=== PATIENT | male | born 1975 | race Caucasian/White ===

== ENCOUNTER → 2022-10-04 | Outpatient (CLI) | payer OTHER ==
[2022-10-04 09:37] LABS: BASOPHILS ABSOLUTE AUTO 0.05 K/mm3 (0.00-0.23); BASOPHILS PERCENT AUTO 0 % (0-2); EOSINOPHILS ABSOLUTE AUTO 0.05 K/mm3 (0.00-0.68); EOSINOPHILS PERCENT AUTO 0 % (0-6); Hematocrit 43.1 % (37.0-53.0); Hemoglobin 15.9 g/dL (13.5-17.5); IMMATURE GRAN ABSOLUTE AUTO 0.09 K/mm3 (0.00-0.10); IMMATURE GRAN PERCENT AUTO 1 % (0-1); LYMPHOCYTES ABSOLUTE AUTO 1.63 K/mm3 (0.84-5.20); LYMPHOCYTES PERCENT AUTO 9 % (21-46); MONOCYTES ABSOLUTE AUTO 1.21 K/mm3 (0.16-1.47); MONOCYTES PERCENT AUTO 6 % (4-13); Mean Corpuscular HGB 32.4 pg (26.0-34.0); Mean Corpuscular HGB Conc 36.9 g/dL (31.5-36.5); Mean Corpuscular Volume 88 fL (80-100); Mean Platelet Volume 9.2 fL (9.1-12.4); NEUTROPHILS ABSOLUTE AUTO 15.99 K/mm3 (1.96-9.15); NEUTROPHILS PERCENT AUTO 84 % (41-73); Platelet Count 289 K/mm3 (150-400); RDW Coefficient Variation 12.5 % (11.7-14.2); RDW Standard Deviation 39.9 fL (35.1-46.3); Red Blood Cell Count 4.91 M/mm3 (4.30-5.90); White Blood Cell Count 19.02 K/mm3 (4.00-11.30)
[2022-10-04 09:50] LABS: Albumin/Globulin Ratio 1.1 (0.8-1.8); Bilirubin, Total 0.8 mg/dL (0.1-1.0); Bun/Creatinine Ratio 11.9 (12.0-20.0); Calcium, Blood 9.1 mg/dL (8.5-10.1); Creatinine, Blood 1.01 mg/dL (0.60-1.20); Globulin, Blood 3.7 g/dL (2.2-4.0); Total Protein, Blood 7.7 g/dL (6.4-8.2)
== END | disposition home or self-care (01) ==
LOC: LAB SHORT 09:33 → LAB 09:33
PROVIDERS: Chiropractor
DX: R10.30 Lower abdominal pain, unspecified (principal)
CPT/HCPCS: 80053; 85025

== ENCOUNTER → 2022-12-11 | Outpatient (CLI) | payer SELFPAY ==
[~2022-12-11] MED LIST: BUSPIRONE HCL7.5 M1 PO; LEVO750 PO
[2022-12-11 08:58] LABS: BASOPHILS ABSOLUTE AUTO 0.03 K/mm3 (0.00-0.23); BASOPHILS PERCENT AUTO 0 % (0-2); EOSINOPHILS ABSOLUTE AUTO 0.11 K/mm3 (0.00-0.68); EOSINOPHILS PERCENT AUTO 1 % (0-6); Hematocrit 42.9 % (37.0-53.0); Hemoglobin 15.6 g/dL (13.5-17.5); IMMATURE GRAN ABSOLUTE AUTO 0.07 K/mm3 (0.00-0.10); IMMATURE GRAN PERCENT AUTO 1 % (0-1); LYMPHOCYTES ABSOLUTE AUTO 1.58 K/mm3 (0.84-5.20); LYMPHOCYTES PERCENT AUTO 10 % (21-46); MONOCYTES ABSOLUTE AUTO 0.87 K/mm3 (0.16-1.47); MONOCYTES PERCENT AUTO 6 % (4-13); Mean Corpuscular HGB 32.5 pg (26.0-34.0); Mean Corpuscular HGB Conc 36.4 g/dL (31.5-36.5); Mean Corpuscular Volume 89 fL (80-100); Mean Platelet Volume 9.2 fL (9.1-12.4); NEUTROPHILS ABSOLUTE AUTO 12.82 K/mm3 (1.96-9.15); NEUTROPHILS PERCENT AUTO 83 % (41-73); Platelet Count 266 K/mm3 (150-400); RDW Coefficient Variation 12.7 % (11.7-14.2); RDW Standard Deviation 41.6 fL (35.1-46.3); White Blood Cell Count 15.48 K/mm3 (4.00-11.30)
[2022-12-11 09:07] LABS: Albumin, Blood 3.7 g/dL (3.4-5.0); Albumin/Globulin Ratio 0.9 (0.8-1.8); Bilirubin, Total 1.1 mg/dL (0.1-1.0); Bun/Creatinine Ratio 14.9 (12.0-20.0); Calcium, Blood 9.4 mg/dL (8.5-10.1); Creatinine, Blood 0.94 mg/dL (0.60-1.20); Globulin, Blood 4.2 g/dL (2.2-4.0); Total Protein, Blood 7.9 g/dL (6.4-8.2)
== END | disposition home or self-care (01) ==
LOC: LAB SHORT 08:53 → LAB 08:53
PROVIDERS: Family Medicine
DX: R10.9 Unspecified abdominal pain (principal)
CPT/HCPCS: 80053; 83690; 85025

== ENCOUNTER 2022-12-16 14:35 | Inpatient (IN) | payer OTHER ==
[~2022-12-16] VITALS: Ht 162.6 cm; Wt 79.4 kg
[2022-12-16 17:12] LABS: Albumin, Blood 3.7 g/dL (3.4-5.0); Albumin/Globulin Ratio 0.9 (0.8-1.8); Bilirubin, Total 0.6 mg/dL (0.1-1.0); Bun/Creatinine Ratio 15.2 (12.0-20.0); Calcium, Blood 9.1 mg/dL (8.5-10.1); Creatinine, Blood 0.99 mg/dL (0.60-1.20); Globulin, Blood 3.9 g/dL (2.2-4.0); Total Protein, Blood 7.6 g/dL (6.4-8.2)
[2022-12-16 17:20] VITALS: BP 131/75
[2022-12-16] MEDS ORDERED: BUSPIRONE HCL7.5 M1 PO (17:55)
--- NOTE | 2022-12-16 18:22 | NUR ---
ER ADMIT Patient admitted for abscess, plan is to be NPO & waiting for surgery consult, consulted resendiz din by ER MD. Patient reports mild pain in RLQ. LR infusing. Denies N/V. Vitals stable.
--- NOTE | 2022-12-16 18:26 | NUR ---
Reviewed safety and provided education to patient and regarding ignition sources and risk of injury while oxygen is in use. Patient & deny smoking or having any ignition sources in belongs, verbalized understanding.
[2022-12-16 20:07] VITALS: BP 133/78
[2022-12-17 02:33] VITALS: BP 113/75
[2022-12-17 05:56] LABS: BASOPHILS ABSOLUTE AUTO 0.04 K/mm3 (0.00-0.23); BASOPHILS PERCENT AUTO 0 % (0-2); EOSINOPHILS ABSOLUTE AUTO 0.26 K/mm3 (0.00-0.68); EOSINOPHILS PERCENT AUTO 3 % (0-6); Hematocrit 41.4 % (37.0-53.0); Hemoglobin 14.5 g/dL (13.5-17.5); IMMATURE GRAN ABSOLUTE AUTO 0.07 K/mm3 (0.00-0.10); IMMATURE GRAN PERCENT AUTO 1 % (0-1); LYMPHOCYTES ABSOLUTE AUTO 1.97 K/mm3 (0.84-5.20); LYMPHOCYTES PERCENT AUTO 19 % (21-46); MONOCYTES PERCENT AUTO 6 % (4-13); Mean Corpuscular HGB 30.9 pg (26.0-34.0); Mean Corpuscular Volume 88 fL (80-100); Mean Platelet Volume 9.1 fL (9.1-12.4); NEUTROPHILS ABSOLUTE AUTO 7.22 K/mm3 (1.96-9.15); NEUTROPHILS PERCENT AUTO 71 % (41-73); Platelet Count 374 K/mm3 (150-400); RDW Coefficient Variation 12.1 % (11.7-14.2); RDW Standard Deviation 38.9 fL (35.1-46.3); Red Blood Cell Count 4.69 M/mm3 (4.30-5.90); White Blood Cell Count 10.16 K/mm3 (4.00-11.30)
--- NOTE | 2022-12-17 06:20 | NUR ---
SHIFT SUMMARY PT IS A&O4, INDEPENDENT IN ROOM, RA, VSS, NPO SINCE ADMISSION, MEDICATED FOR PAIN X1 OVERNIGHT, FIRE IGNITION SAFETY EDUCATION PROVIDED, CONTINUE POC
[2022-12-17 06:37] LABS: Bun/Creatinine Ratio 16.7 (12.0-20.0); Calcium, Blood 8.6 mg/dL (8.5-10.1); Creatinine, Blood 0.84 mg/dL (0.60-1.20); Potassium, Blood 4.1 mmol/L (3.5-5.5)
[2022-12-17 15:09] VITALS: BP 112/75
--- NOTE | 2022-12-17 16:55 | NUR ---
DAYSHIFT SUMMARY Patient alert & oriented x4. NPO this AM pending surgical consult, plan is to continue IV ABX & clear liquid diet. Patient will remain hospitalized overnight & repeat CT. No plans for surigcal intervention at this time. IV Zoysn infused BID this shift. Tolertating PO intake, denies N/V. Patient denies smoking any nicotine products. During hourly rounding, education provided on the risks of injury while using an ignition source around O2. Patient & verbalize understanding and deny having any ignition sources in possession. VSS, Will continue plan of care.
[2022-12-17 19:19] VITALS: BP 119/79
[2022-12-18 04:55] VITALS: BP 104/69
[2022-12-18 05:19] LABS: BASOPHILS ABSOLUTE AUTO 0.05 K/mm3 (0.00-0.23); BASOPHILS PERCENT AUTO 1 % (0-2); EOSINOPHILS ABSOLUTE AUTO 0.35 K/mm3 (0.00-0.68); EOSINOPHILS PERCENT AUTO 4 % (0-6); Hematocrit 41.8 % (37.0-53.0); Hemoglobin 14.7 g/dL (13.5-17.5); IMMATURE GRAN ABSOLUTE AUTO 0.05 K/mm3 (0.00-0.10); IMMATURE GRAN PERCENT AUTO 1 % (0-1); LYMPHOCYTES ABSOLUTE AUTO 2.37 K/mm3 (0.84-5.20); LYMPHOCYTES PERCENT AUTO 27 % (21-46); MONOCYTES ABSOLUTE AUTO 0.58 K/mm3 (0.16-1.47); MONOCYTES PERCENT AUTO 7 % (4-13); Mean Corpuscular HGB 31.1 pg (26.0-34.0); Mean Corpuscular HGB Conc 35.2 g/dL (31.5-36.5); Mean Corpuscular Volume 89 fL (80-100); NEUTROPHILS ABSOLUTE AUTO 5.36 K/mm3 (1.96-9.15); NEUTROPHILS PERCENT AUTO 61 % (41-73); Platelet Count 428 K/mm3 (150-400); RDW Coefficient Variation 11.9 % (11.7-14.2); RDW Standard Deviation 38.8 fL (35.1-46.3); Red Blood Cell Count 4.72 M/mm3 (4.30-5.90); White Blood Cell Count 8.76 K/mm3 (4.00-11.30)
--- NOTE | 2022-12-18 05:54 | NUR ---
SHIFT SUMMARY PT'S PAIN WELL MANAGED WITH TYLENOL, AND DID NOT REQUIRE ANY DOSES OF FENTANYL THIS SHIFT. Q1H FIRE SAFETY CHECKS COMPLETED WITH NO SOURCES OF IGNITION IDENTIFIED.
[2022-12-18 05:59] LABS: Albumin, Blood 3.4 g/dL (3.4-5.0); Anion Gap 8 mmol/L (6-16); Blood Urea Nitrogen 11 mg/dL (8-24); Bun/Creatinine Ratio 11.1 (12.0-20.0); CO2, Blood 25 mmol/L (21-32); Calcium, Blood 8.9 mg/dL (8.5-10.1); Chloride, Blood 107 mmol/L (98-108); Creatinine, Blood 0.99 mg/dL (0.60-1.20); Glomerular Filtration Rate 95 (60-); Glucose, Blood 87 mg/dL (70-99); Phosphorus, Blood 4.1 mg/dL (2.5-4.9); Potassium, Blood 3.9 mmol/L (3.5-5.5); Sodium, Blood 140 mmol/L (136-145)
[2022-12-18 07:40] VITALS: BP 115/73
[2022-12-18 15:25] VITALS: BP 123/88
--- NOTE | 2022-12-18 18:15 | NUR ---
SHIFT SUMMMARY: Pt remains A&O x3 this shift. VSS, resp even nonlabored on RA. Up with steady gait. BM this afternoon. Tolerating full liquid diet. IV antibx given as ordered. No further needs id or verbalized at this time. Will continue to monitor this shift.
[2022-12-18 19:47] VITALS: BP 117/67
[2022-12-19 03:20] VITALS: BP 104/61
--- NOTE | 2022-12-19 05:58 | NUR ---
PT UP TO RESTROOM DURING BEDSIDE REPORTING - EDUCATED PT OF IGNITION RISK - PT DENIED ANY ITEMS THAT HAVE POTENTIAL RISK- PT DENIED PAIN- IV ABX INFUSED INTERMITTENLY T/O NIGHT- SLEEP IN CHAIR AT BEDSIDE- BED LOW POSITION, CALL LIGHT WITHIN REACH
[2022-12-19 07:32] VITALS: BP 109/77
[2022-12-19 15:38] VITALS: BP 112/78
[2022-12-19] MEDS ORDERED: LEVO750 PO (16:38)
--- NOTE | 2022-12-19 17:23 | NUR ---
SHIFT/DISCHARGE SUMMARY: Pt remains A&O this shift. VSS, afebrile. Denies pain, tolerating regular diet. No BM today. Ambulating independently. All discharge instructions reviewed with pt and . Return verbal understanding provided from pt. Pt to lobby with all belongings.
== END 2022-12-19 17:10 | disposition home or self-care (01) | DRG 392 ==
LOC: ER 14:35 → MEDS 14:36 → ENPENDDIS 12-19 15:21 → MEDS 12-19 17:10
PROVIDERS: ADMIT Family Medicine
DX: K57.20 Diverticulitis of large intestine with perforation and abscess without bleeding (principal); F41.9 Anxiety disorder, unspecified; D72.828 Other elevated white blood cell count; D75.838 Other thrombocytosis; Z90.49 Acquired absence of other specified parts of digestive tract; Z98.890 Other specified postprocedural states
CPT/HCPCS: 36415; 80048; 80053; 80069; 85025; 96365; 99284-25; A9270; J2543; J3010; J7050; J7120

== ENCOUNTER → 2022-12-16 | Outpatient (CLI) | payer SELFPAY ==
[2022-12-16 11:52] LABS: BASOPHILS ABSOLUTE AUTO 0.03 K/mm3 (0.00-0.23); BASOPHILS PERCENT AUTO 0 % (0-2); EOSINOPHILS PERCENT AUTO 1 % (0-6); Hemoglobin 16.2 g/dL (13.5-17.5); IMMATURE GRAN ABSOLUTE AUTO 0.07 K/mm3 (0.00-0.10); IMMATURE GRAN PERCENT AUTO 1 % (0-1); LYMPHOCYTES ABSOLUTE AUTO 1.76 K/mm3 (0.84-5.20); LYMPHOCYTES PERCENT AUTO 14 % (21-46); MONOCYTES ABSOLUTE AUTO 0.66 K/mm3 (0.16-1.47); MONOCYTES PERCENT AUTO 5 % (4-13); Mean Corpuscular HGB 32.1 pg (26.0-34.0); Mean Corpuscular Volume 89 fL (80-100); Mean Platelet Volume 9.3 fL (9.1-12.4); NEUTROPHILS ABSOLUTE AUTO 10.21 K/mm3 (1.96-9.15); NEUTROPHILS PERCENT AUTO 80 % (41-73); Platelet Count 399 K/mm3 (150-400); RDW Coefficient Variation 12.1 % (11.7-14.2); RDW Standard Deviation 39.3 fL (35.1-46.3); Red Blood Cell Count 5.04 M/mm3 (4.30-5.90); White Blood Cell Count 12.83 K/mm3 (4.00-11.30)
== END | disposition home or self-care (01) ==
LOC: LAB 11:48 → LAB SHORT 11:48
PROVIDERS: Physician Assistant
DX: R10.9 Unspecified abdominal pain (principal)
CPT/HCPCS: 85025

== ENCOUNTER 2023-05-07 07:05 | Inpatient (IN) | payer OTHER ==
[~2023-05-07] VITALS: Ht 162.6 cm; Wt 94.0 kg
[2023-05-07] VITALS (25 sets, daily range): BP systolic 97–115; BP diastolic 66–80
[~2023-05-07 07:05] MED LIST changes: +FISH OIL 1,0001 EA10 PO; +KYZATREX100 MG PO; +MULVITA PO; +ZYRTEC10 M1 PO
--- NOTE | 2023-05-07 09:16 | NUR ---
PRE-OP NOTE PT A&OX4, BREATHING RA, PAIN TO LOWER ABDOMEN CONSISTENT WITH BASELINE FOR THE LAST FEW MONTHS. AT BEDSIDE. Ambulatory in Day Surgery Patient confirms NPO status and agrees with scheduled surgery. Pre-Op teaching done. Pt verbalizes understanding. 904 TIME OUT PERFORMED PRIOR TO DR JAVIER PLACING EPIDURAL, WILD PAREKH PRESENT.
[2023-05-07 09:31] LABS: Bun/Creatinine Ratio 14.6 (12.0-20.0); Calcium, Blood 8.9 mg/dL (8.5-10.1); Creatinine, Blood 0.82 mg/dL (0.60-1.20); Potassium, Blood 3.7 mmol/L (3.5-5.5)
--- NOTE | 2023-05-07 15:44 | NUR ---
PT TO SURGICAL FLOOR AT APPROXIMATELY 1340. PT RESTING COMFORTABLY, PAIN MEDICATED PER EMR, EPIDURAL IN PLACE. O2 OVER 95% ON 3L NC. BREATHING EVEN AND UNLABORED. DERMATOMES AND V/S Q 1 HOUR.
--- NOTE | 2023-05-07 17:19 | NUR ---
SHIFT SUMMARY PT ADMITTED FROM PACU THIS SHIFT. POD 0 FROM COLECTOMY WITH EPIDURAL IN PLACE. DERMATOMES ASSESSMENT COMPLETED Q 1 HOUR. FERNANDEZ CATHETER DRAINING CLEAR YELLOW URINE. SUNITA DRAINING MODERATE AMOUNT OF SEROSANGUINOUS. TARUN DRESSING C/D/I. IV ON RIGHT FA PATENT. VSS, BOWEL SOUNDS HYPOACTIVE. BREATHING EVEN AND UNLABORED. AT BEDSIDE, CALL LIGHT WITHIN REACH.
[2023-05-08] VITALS (15 sets, daily range): BP systolic 91–111; BP diastolic 57–75
--- NOTE | 2023-05-08 04:29 | NUR ---
SHIFT SUMMARY POD 1 SIGMOID COLECTOMY. TARUN DRESSING TO MIDLINE ABD REMAINS UNCHANGED WITH A SMALL TODD SIZED SPOT THAT IS DRY. SUNITA DRAIN WITH SS. EPIDURAL SITE REMAINS WNL AND PT WITH DECREASED SENSATION FROM T7-T12. PT REPORTS GOOD PAIN CONTROL. FERNANDEZ INTACT. SANTI CLEAR LIQS. REPORTS PASSING FLATUS A FEW TIMES. EPIDURAL VS STABLE. SPOUSE AT BEDSIDE FOR SUPPORT. USES CALL LIGHT APPROPRIATELY.
[2023-05-08 05:29] LABS: BASOPHILS ABSOLUTE AUTO 0.01 K/mm3 (0.00-0.23); BASOPHILS PERCENT AUTO 0 % (0-2); EOSINOPHILS PERCENT AUTO 0 % (0-6); Hematocrit 41.1 % (37.0-53.0); Hemoglobin 14.2 g/dL (13.5-17.5); IMMATURE GRAN ABSOLUTE AUTO 0.05 K/mm3 (0.00-0.10); IMMATURE GRAN PERCENT AUTO 0 % (0-1); LYMPHOCYTES ABSOLUTE AUTO 0.92 K/mm3 (0.84-5.20); LYMPHOCYTES PERCENT AUTO 7 % (21-46); MONOCYTES ABSOLUTE AUTO 0.47 K/mm3 (0.16-1.47); MONOCYTES PERCENT AUTO 4 % (4-13); Mean Corpuscular HGB 31.3 pg (26.0-34.0); Mean Corpuscular HGB Conc 34.5 g/dL (31.5-36.5); Mean Corpuscular Volume 91 fL (80-100); Mean Platelet Volume 9.1 fL (9.1-12.4); NEUTROPHILS ABSOLUTE AUTO 11.92 K/mm3 (1.96-9.15); NEUTROPHILS PERCENT AUTO 89 % (41-73); Platelet Count 259 K/mm3 (150-400); RDW Coefficient Variation 12.5 % (11.7-14.2); Red Blood Cell Count 4.53 M/mm3 (4.30-5.90); White Blood Cell Count 13.37 K/mm3 (4.00-11.30)
[2023-05-08 06:06] LABS: Bun/Creatinine Ratio 19.4 (12.0-20.0); Calcium, Blood 8.1 mg/dL (8.5-10.1); Creatinine, Blood 0.72 mg/dL (0.60-1.20)
--- NOTE | 2023-05-08 17:03 | NUR ---
SHIFT SUMMARY PT OOB THIS SHIFT TO CHAIR AND RESTROOM. PAIN MANAGED PER EPIDURAL, DERAMTOME CHECKS Q 4 HOURS. DIAPHRAGM TO LOW ABDOMEN/ INGUINAL AREA WITH REDUCED SENSATION. SUNITA DRAINING SS. FERNANDEZ DRAINING CLEAR YELLOW URINE. TARUN WITH TODD SIZED SPOT OF DRY BLOOD, OTHERWISE C/D/I.IV SALINE LOCKED. USES CALL LIGHT APPROPRIATELY. VSS, BREATHING EVEN AND UNLABORED. BED IN LOWEST POSITION. AT BEDSIDE FOR SUPPORT.
[2023-05-09 03:23] VITALS: BP 119/76
--- NOTE | 2023-05-09 04:35 | NUR ---
SHIFT SUMMARY POD 2 SIGMOID COLECTOMY. TARUN DRESSING TO MIDLINE ABD REMAINS UNCHANGED WITH A SMALL SPOT OF DRIED BROWN BLOOD. SUNITA DRAIN WITH SS. EPIDURAL SITE REMAINS WNL AND PT WITH DECREASED SENSATION FROM T7-T12. PT REPORTS GOOD PAIN CONTROL FROM EPIDURAL, BUT HAS REPORTED LOWER BACK PAIN AND L HIP PAIN. KPAD TO LOWER BACK PLACED FOR COMFORT AND TORADOL GIVEN X2. FERNANDEZ INTACT. SLOWLY SANTI CLEAR LIQS, BUT DID GET NAUSEATED X1 WITH NO EMESIS. REPORTS PASSING FLATUS A FEW TIMES. HAD X1 BM THIS SHIFT. USES CALL LIGHT APPROPRIATELY.
[2023-05-09 06:56] VITALS: BP 110/70
[2023-05-09 14:41] VITALS: BP 101/67
[2023-05-09 18:49] VITALS: BP 129/74
--- NOTE | 2023-05-09 19:03 | NUR ---
SHIFT SUMMARY PT IS POD#[address] HUSTON. PT HAS BEEN OOB AND ABLE TO AMBULATE. PT IS PASSING FLATUS AND STOOL. PT TOLERATING FULL LIQ DIET. PT HAS COMPLAINED OF BLADDER DISCOMFORT T/O THE DAY. FERNANDEZ CATH APPEARS TO BE DRAINING ALTHOUGH URINARY OUTPUT HAS DECREASED THIS AFTERNOON, URINE IS DARK YELLOW AND CLEAR. DR. HUSTON NOTIFIED OF BLADDER DISCOMFORT. BEDSIDE REPORT GIVEN TO NOEL RN. PT REPORTED SHORTNESS OF BREATH WHEN LEANING FORWARD FOR STAFF TO ASSESS SPINAL SITE. PT REPORTS HE HAS NOT BEEN USING HIS INCENTIVE SPIROMETER, HIS RESPIRATIONS APPEAR SHALLOW. PT ENCOURAGED TO USE IS AND WAS ABLE TO DEMONSTRATE USE WHILE RN AT THE BEDSIDE. PT RESTING IN HIS RECLINER AT THIS TIME, CALL LIGHT WITHIN REACH. PT DENIES CHEST PAIN AND REPORTED DECREASE IN SHORTNESS OF BREATH AFTER LEANING BACK INTO THE RECLINER.
[2023-05-09 21:15] VITALS: BP 116/71
--- NOTE | 2023-05-09 21:30 | NUR ---
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 WHEN ASSISTING PT BACK TO BED FROM CHAIR,PT APPEARS PALE.PT REPORTS MILD SOB,WHICH DOES NOT COMPLETELY RESOLVE WITH REST.PT REPORTS MILD PRESSURE ACROSS CHEST AT NIPPLE LINE.ABD LARGELY DISTENDED WHICH PT REPORTS LARGER THAN PREVIOUSLY NOTED.I AM UNABLE TO DETERMINE THIS THIS IS MY FIRST ASSESSMENT OF PT. FEW TYMPANIC BTS L ABD.LS DIMINISHED R LUNG,BUT CLEAR.PT HAS EPIDURAL WHICH NOTES EFFECT AT APPROX 2 INCHES BELOW NIPPLE LINE DOWN ABD TO GROINS.EPIDURAL SITE IS CLEAR AND PLANS ARE FOR REMOVAL TOMORROW. PT REPORTS PRIOR BILAT HIP PAIN IN ADDITION,BLADDER FULLNESS AND DISCOMFORT WHICH HE STATES BOTH IMPROVED AT THIS TIME.FERNANDEZ WITH DRK ALMOST ORANGE URINE IN AMNT OF 180 ML.WHITH LAST EMPTY REPORTED 6 PM.PT HAS TEMP 100.6 TACHY AT 106 WHICH HAS TRENDED UPWARDS.PT REPORTS HANDS AND FEET FEEL COOL AND THEY ALSO FEEL COOL TO TOUCH PER THIS RN.REFILL TO EXT 4-5 SECS,TONGUE DRY, IV LR AT CURRENT RATE OF 30 ML/HR .SEE FULL SET OF VS DOCUMENTED.CALL PLACED TO DR HUIZAR AND CX ORDERED FOR HOSPITALIST.MESSAGE OUT TO DR MCCRAY PER DR SHAW.
[2023-05-09 22:28] LABS: Base Excess Venous 1.1 mmol/L; Bicarbonate Venous 26.3 mmol/L (24.0-30.0); pH Blood Venous 7.52 (7.34-7.37)
[2023-05-09 22:33] LABS: BASOPHILS ABSOLUTE AUTO 0.03 K/mm3 (0.00-0.23); BASOPHILS PERCENT AUTO 0 % (0-2); EOSINOPHILS ABSOLUTE AUTO 0.01 K/mm3 (0.00-0.68); EOSINOPHILS PERCENT AUTO 0 % (0-6); Hemoglobin 14.6 g/dL (13.5-17.5); IMMATURE GRAN ABSOLUTE AUTO 0.06 K/mm3 (0.00-0.10); IMMATURE GRAN PERCENT AUTO 1 % (0-1); LYMPHOCYTES ABSOLUTE AUTO 1.18 K/mm3 (0.84-5.20); LYMPHOCYTES PERCENT AUTO 9 % (21-46); MONOCYTES ABSOLUTE AUTO 0.47 K/mm3 (0.16-1.47); MONOCYTES PERCENT AUTO 4 % (4-13); Mean Corpuscular HGB 31.5 pg (26.0-34.0); Mean Corpuscular HGB Conc 35.6 g/dL (31.5-36.5); Mean Corpuscular Volume 88 fL (80-100); Mean Platelet Volume 8.9 fL (9.1-12.4); NEUTROPHILS ABSOLUTE AUTO 11.56 K/mm3 (1.96-9.15); NEUTROPHILS PERCENT AUTO 87 % (41-73); Platelet Count 219 K/mm3 (150-400); RDW Coefficient Variation 12.8 % (11.7-14.2); RDW Standard Deviation 41.4 fL (35.1-46.3); Red Blood Cell Count 4.64 M/mm3 (4.30-5.90); White Blood Cell Count 13.31 K/mm3 (4.00-11.30)
[2023-05-09 22:55] LABS: Albumin/Globulin Ratio 0.8 (0.8-1.8); Bilirubin, Total 1.1 mg/dL (0.1-1.0); Bun/Creatinine Ratio 19.5 (12.0-20.0); Calcium, Blood 8.5 mg/dL (8.5-10.1); Creatinine, Blood 0.72 mg/dL (0.60-1.20); Globulin, Blood 3.7 g/dL (2.2-4.0); Magnesium, Blood 2.1 mg/dL (1.6-2.4); Potassium, Blood 3.3 mmol/L (3.5-5.5); Total Protein, Blood 6.7 g/dL (6.4-8.2)
[2023-05-09 23:07] VITALS: BP 127/77
[2023-05-09 23:58] LABS: Source, Urine Clean Catch
[2023-05-10] VITALS (29 sets, daily range): BP systolic 102–156; BP diastolic 62–106
[2023-05-10 00:03] LABS: Bilirubin, Urine Neg (Neg); Blood, Urine 5+ (Neg); Glucose Qualitative, Urine Neg (Neg); Ketones, Urine Neg (Neg); Leukocyte Esterase, Urine Neg (Neg); Nitrite, Urine Neg (Neg); Protein, Urine 2+ (Neg); Urobilinogen, Urine NORM (Normal)
[2023-05-10 00:46] LABS: Appearance, Urine Clear (Clear); Color, Urine Yellow (P-Yellow)
[2023-05-10 00:47] LABS: Bacteria Rare /hpf; Squamous Epithelial Cells Not Seen /hpf (Few); White Blood Cells, Urine 0-2 /hpf (0-5)
--- NOTE | 2023-05-10 03:06 | NUR ---
MULTIPLE NEW ORDERS FOR ANTIBIOTICS,K RIDER AND CONTINUED IV FLUIDS IN ADDITION TO RADIOLOGY.RADIOLOGY FLORENTIN CALLED IN REGARDS TO CONCERN OF ALLERGY TO CONTRAST MEDIA,HOWEVER REPORTS SYMPTOM BURNING IN ABD WHICH LASTED LONGER EACH TIME HE RECEIVED IT.REPORTS UP TO APPROX 2 MIN MOST RECENT. PT REPORTS HE IS ABLE TO EAT SHELL FISH.RADIOLOGY PLANS TO REVIEW FURTHER IN AM PTS HX OF TESTING,CONTRAST AND ALLERGY REPORTED AND WILL KEEP ORDER FOR PENDING IN AM THIS WAS OKD PER DR MCCRAY.
[2023-05-10 05:10] LABS: BASOPHILS ABSOLUTE AUTO 0.03 K/mm3 (0.00-0.23); BASOPHILS PERCENT AUTO 0 % (0-2); EOSINOPHILS ABSOLUTE AUTO 0.01 K/mm3 (0.00-0.68); EOSINOPHILS PERCENT AUTO 0 % (0-6); Hematocrit 39.7 % (37.0-53.0); IMMATURE GRAN ABSOLUTE AUTO 0.07 K/mm3 (0.00-0.10); IMMATURE GRAN PERCENT AUTO 1 % (0-1); LYMPHOCYTES PERCENT AUTO 7 % (21-46); MONOCYTES ABSOLUTE AUTO 0.53 K/mm3 (0.16-1.47); MONOCYTES PERCENT AUTO 4 % (4-13); Mean Corpuscular HGB 31.3 pg (26.0-34.0); Mean Corpuscular HGB Conc 35.3 g/dL (31.5-36.5); Mean Corpuscular Volume 89 fL (80-100); Mean Platelet Volume 9.2 fL (9.1-12.4); NEUTROPHILS ABSOLUTE AUTO 11.67 K/mm3 (1.96-9.15); NEUTROPHILS PERCENT AUTO 88 % (41-73); Platelet Count 225 K/mm3 (150-400); RDW Coefficient Variation 12.6 % (11.7-14.2); RDW Standard Deviation 41.3 fL (35.1-46.3); Red Blood Cell Count 4.47 M/mm3 (4.30-5.90); White Blood Cell Count 13.21 K/mm3 (4.00-11.30)
[2023-05-10 05:39] LABS: Bun/Creatinine Ratio 14.2 (12.0-20.0); Calcium, Blood 8.2 mg/dL (8.5-10.1); Creatinine, Blood 0.78 mg/dL (0.60-1.20); Potassium, Blood 3.1 mmol/L (3.5-5.5)
--- NOTE | 2023-05-10 07:40 | NUR ---
SUMMARY PT RESTING THIS AM. PENDING POSSIBLE FURTHER IMAGING .
--- NOTE | 2023-05-10 09:44 | NUR ---
@0815 THIS RN IN TO ASSESS PATIENT. PATIENT REPORTS CHEST PAIN AND SOB "WORSE THAN LAST NIGHT". VITAL SIGNS SHOW BP110/69, HR 115 AND SPO2 93%. PATIENT HAS TYMPANIC BOWEL SOUNDS ON RLQ. MODERATE DISTENTION IN ABD. TARUN DRESSING WITH MODERATE SS DRNG. SUNITA WITH YELLOW SCANT OUTPUT THIS AM. CALL PLACED TO DR. HUSTON WHO IS IN OR AND CALL PLACED TO HOSPITALIST. EKG WAS PREFOMED SHOWING SR TACHY AT 112. CT SCAN WAS ORDERED AND PREP FOR CONTRAST ORDERED. IV ACCESS GAINED ON L AC. IVF AND ABX INFUSING. PLATE CLEANER ARRIVED TO TRANSPORT PATIENT AT 0950.
--- NOTE | 2023-05-10 10:41 | NUR ---
UPDATE PATIENT BACK FROM IMAGING, IVF, ABX AND POSTASSIUM RUNNING. REPOSTIONED AND LINEN CHANGED. EPIDURAL SITE IS INTACT.
--- NOTE | 2023-05-10 12:40 | NUR ---
PATIENT TRANSPORTED TO DAY SURGERY.
--- NOTE | 2023-05-10 12:47 | NUR ---
PT HERE FROM 211 VIA BED FOR RETURN TO OR EX. LAP. PT HAS PCEA IN PLACE. PAIN 02/18. PT IS GUAREDED AND MOANING. FERNANDEZ CATH IN PLACE. SCD ON. IV IN LAC INFUSING NS AND KCL. IV IN RFA IS INFILTRATED.
[2023-05-10 17:47] LABS: Bun/Creatinine Ratio 10.2 (12.0-20.0); Calcium, Blood 7.9 mg/dL (8.5-10.1); Creatinine, Blood 1.08 mg/dL (0.60-1.20); Potassium, Blood 4.4 mmol/L (3.5-5.5)
--- NOTE | 2023-05-10 17:59 | NUR ---
ASSUMED CARE PT WAS BROUGHT FROM OR TO ICU AT 1710. PT IS OPENING EYES TO VERBAL STIMULATION AT THIS TIME AND MOANING. PT FOLLOWING COMMANDS. RASS +1. PT WITH OPA AND NON-REBREATHER MASK AT 15 LPM, O2 SATS > 95%. OPA HAS SINCE BEEN REMOVED AND NON-REBREATHER MASK REMAINS IN PLACE AT 10 LPM. O2 SATS REMAIN > 95%. LUNG GOFF CLEAR T/O. CARDIAC MONITORING REFLECTS SINUS TACH, HR 130s. SBP HAS INCREASED SINCE ARRIVAL TO UNIT, 150s AT THIS TIME. PULSES WEAK BILAT RADIAL AND PEDAL. CAP REFILL < 3 SECONDS. RECTAL TEMP PROBE PLACED, TMAX 101.8 SINCE PLACEMENT. PT SHIVERING. TYLENOL SUPPOSITORY GIVEN. LR BOLUS INFUSING. PT HAS EPIDURAL THAT WAS PLACED WITH PREVIOUS SURGICAL PROCEDURE. EPIDURAL INSERTION SITE VISUALIZED, SMALL AMOUNT OF OOZING NOTED. 10 ML/HR OF FENTANYL INFUSING CONTINUOUSLY THROUGH EPIDURAL. TARUN DRESSING OVER PT'S ABDOMINAL MIDLINE. DRESSING NOT SUCTIONING INTENDED, DR. HUSTON IN TO SEE DRESSING AND STATES DRESSING WILL BE ADEQUATE UNTIL TOMORROW. JOSÉ DRAIN PRESENT, 170 mL OF SEROSANGUINOUS FLUID OUT SINCE ARRIVAL TO UNIT. ILLEOSTOMY IN PLACE, SMALL AMOUNT OF RED/BROWN DRAINAGE NOTED. FERNANDEZ IN PLACE, MINIMAL URINE OUTPUT NOTED. BOWEL TONES AUDIBLE IN ALL FOUR QUADRANTS.
--- NOTE | 2023-05-10 22:49 | NUR ---
ASSUMPTION OF CARE PT RESTING IN BED, SLEEPY BUT AROUSABLE. ORIENTED X4, PT ABLE TO ASNWER QUESTIONS, FOLLOW COMMANDS AND MAKE NEEDS KNOWN. PT MOVES ALL EXTREMITIES EQUALLY BILATERALLY. HR 110-120'S SINUS TACH, MAP >65. PT ON NC AT 5LPM TITRATED DOWN TO 3LPM, OXYGEN SATURATION >95%. TARUN DRESSING IN PLACE TO MIDABDOMEN. ILLEOSTOMY IN PLACE TO LUQ WITH LIQUID BROWN OUTPUT. JOSÉ DRAIN TO LEFT ABDOMEN WITH PINK DRAINAGE. PT HAS EPIDURAL IN PLACE WITH FENTANYL INFUSING AT A CONTINUOUS RATE OF 2MCG/ML AT 10MLS/HR, PCEA AVAILABLE TO PT WITH 4ML BOLUS WITH A 1 HOUR LIMIT OF 24MLS. FERNANDEZ IN PLACE PATENT DRAINING TO GRAVITY. SCD'S IN PLACE. BED IN LOWEST POSITION, CALL LIGHT WITHIN REACH. AT THE BEDSIDE. CARE CONTINUES.
[2023-05-11] VITALS (28 sets, daily range): BP systolic 89–123; BP diastolic 55–90
[2023-05-11 03:32] LABS: Hematocrit 40.4 % (37.0-53.0); Mean Corpuscular HGB 31.4 pg (26.0-34.0); Mean Corpuscular HGB Conc 34.7 g/dL (31.5-36.5); Mean Corpuscular Volume 91 fL (80-100); Mean Platelet Volume 9.4 fL (9.1-12.4); Platelet Count 221 K/mm3 (150-400); RDW Coefficient Variation 12.9 % (11.7-14.2); RDW Standard Deviation 42.5 fL (35.1-46.3); Red Blood Cell Count 4.46 M/mm3 (4.30-5.90); White Blood Cell Count 9.15 K/mm3 (4.00-11.30)
[2023-05-11 03:54] LABS: Bun/Creatinine Ratio 16.8 (12.0-20.0); Creatinine, Blood 0.71 mg/dL (0.60-1.20); Potassium, Blood 3.7 mmol/L (3.5-5.5)
[2023-05-11 04:13] LABS: BAND PERCENT MAN 10 % (0-8); BASOPHILS PERCENT MAN 0 % (0-2); EOSINOPHILS PERCENT MAN 0 % (0-6); LYMPHOCYTES ABSOLUTE MAN 0.64 K/mm3 (0.84-5.20); LYMPHOCYTES PERCENT MAN 7 % (21-46); METAMYELOCYTE ABSOLUTE MAN 0.09 K/mm3 (0.00-0.00); METAMYELOCYTE PERCENT MAN 1 % (0-0); MONOCYTES ABSOLUTE MAN 0.73 K/mm3 (0.16-1.47); MONOCYTES PERCENT MAN 8 % (4-13); NEUTROPHILS ABSOLUTE MAN 7.68 K/mm3 (1.96-9.15); SEG NEUTROPHILS PERCENT MAN 74 % (41-73); TOTAL CELLS COUNTED 100
--- NOTE | 2023-05-11 06:12 | NUR ---
SHIFT SUMMARY PT RESTING IN BED, ALERT AND ORIENTED X 4. PT ANSWERS QUESTIOSN APPROPRIATELY, MAKES NEEDS KNOWN AND FOLLOWS COMMANDS. PT MOVES ALL EXTREMITIES EQUALLY BILATERALLY. PT HAS SENSATION IN HIS LOWER EXTREMITIES, ABLE TO WIGGLE TOES. HR 100'S SINUS TACH, MAP >65. IN ON 3LPM VIA NC, OXYGEN SATURATION >95%. TARUN DRESSING MIDLINE, ILEOSTOMY IN PLACE TO LUQ WITH MINIMAL BROWN LIQUID OUTPUT, WAFER AND COLLECTION DEVICE CHANGED THIS SHIFT. JOSÉ DRAIN TO LEFT ABDOMEN WITH PINK DRAINAGE. PT HAS EPIDURAL IN PLACE WITH CONTINUOUS FENTANYL INFUSING AND PCEA, 2MCG/ML AT 10MLS/HR. FERNANDEZ PATENT DRAINING TO GRAVITY. PIV TO LEFT AC AND LEFT WRIST. LR INFUSING AT 150MLS/HR. BED IN LOWEST POSITION, CALL LIGHT WITHIN REACH. CARE CONTINUES.
--- NOTE | 2023-05-11 08:08 | NUR ---
Assumed care of pt at 0700. Bedside shift report received from Gloria RN and Arianna RN. Pt A&O x 4. Answers questions, follows commands, verbalizes needs. Pleasant and cooperative with care. SpO2 94% with 3 LPM NC. ETCO2 35. BP stable. HR 97-107. Pt's spouse currently at bedside. Pt brushing teeth at this time
--- NOTE | 2023-05-11 09:22 | NUR ---
EPIDURAL ASSESSMENT Sensory block T7-T10 L side and T7-L1 R side. Full flexion of knees and feet present.
--- NOTE | 2023-05-11 09:29 | NUR ---
Call placed to Dr Bonilla as pt is requesting ice chips. Provider states this is acceptable.
--- NOTE | 2023-05-11 12:05 | NUR ---
1200 EPIDURAL ASSESSMENT Sensory block T7-T10 L side and T7-L1 R side. Full flexion of knees and feet present. Dr Bonilla has been in to see patient. Continue with ice chips today and will assess if diet can be advanced tomorrow. Orders for patient to get out of bed. Assisted patient to transfer from bed to chair. Weak, but tolerated activity well. Pt demonstrated appropriate use of incentive spirometer. Encouraged to use during every commercial break, since he is watching TV. Patient and family agreeable with this plan.
--- NOTE | 2023-05-11 12:35 | NUR ---
Plan for pt to transfer to room 227. Telephone report given to Ana ROME. Pt and family aware of transfer and agreeable with paln of care.
--- NOTE | 2023-05-11 13:49 | NUR ---
TRANSFER: REPORT RECEIVED FROM INCIDENT RESPONSE COORDINATORWILD VILLAR. PT TO RM 227 AT 1250 VIA WHEELCHAIR. ABLE TO TRANSFER FROM WHEELCHAIR TO BED WITH 1-2 ASSIST. A/O, VSS. SURGICAL SITE WNL, TARUN IS NOT COMPRESSED, DR. HUSTON AWARE. OSTOMY APPLIANCE IS SECURE, STOMA PINK AND HAS LIQ BROWN DRAINAGE. EPIDURAL ASSESSMENT COMPLETED. NO CHANGE SINCE WHAT WAS REPORTED. INSERTION SITE AT BACK, WNL. PT ABLE TO MOVE LEGS, FERNANDEZ DRAINING. LR INFUSING AND PT GIVEN EPIDURAL BOLUS BUTTON. PT ORIENTED TO ROOM AND CALL LIGHT. PT VERBALIZED UNDERSTANDING.
--- NOTE | 2023-05-11 15:05 | NUR ---
TELE BOX APPLIED AND VERIFIED AT THIS TIME WITH NANCY RIVAS. NSR WITH HR 99
--- NOTE | 2023-05-11 18:13 | NUR ---
SUMMARY: NO CHANGE SINCE TRANSFER. PT A/O, EPIDURAL CHECKS WNL. PT REPORTS PAIN 2-3/10. PT HAS DECREASED SENSATION FROM T7-L1, ABLE TO MOVE LEGS. DR. JAVIER SAW PT AT ABOUT 1630. ILEOSTOMY BAG EMPTIED X2, 150ML BROWN/BLACK LIQ STOOL AND FLATUS PRESENT. SURGICAL SITE APPEARS WNL, DRY. SUNITA DRAIN COMPRESSED. PT TAKING IN SMALL AMT OF ICE CHIPS. IV ANTIBIOTIC INFUSED. VSS, PT AT BEDSIDE. NO ACUTE CONCERNS.
[2023-05-12 00:59] VITALS: BP 112/77
[2023-05-12 03:30] VITALS: BP 111/81
[2023-05-12 05:54] LABS: Hematocrit 33.7 % (37.0-53.0); Hemoglobin 11.7 g/dL (13.5-17.5); Mean Corpuscular HGB 31.2 pg (26.0-34.0); Mean Corpuscular HGB Conc 34.7 g/dL (31.5-36.5); Mean Corpuscular Volume 90 fL (80-100); Mean Platelet Volume 10.3 fL (9.1-12.4); Platelet Count 254 K/mm3 (150-400); RDW Coefficient Variation 13.1 % (11.7-14.2); RDW Standard Deviation 43.4 fL (35.1-46.3); Red Blood Cell Count 3.75 M/mm3 (4.30-5.90); White Blood Cell Count 12.36 K/mm3 (4.00-11.30)
[2023-05-12 06:22] LABS: Bun/Creatinine Ratio 29.9 (12.0-20.0); Calcium, Blood 8.2 mg/dL (8.5-10.1); Creatinine, Blood 0.67 mg/dL (0.60-1.20); Potassium, Blood 3.7 mmol/L (3.5-5.5)
--- NOTE | 2023-05-12 07:31 | NUR ---
SHIFT SUMMARY NO ACUTE CHANGES NOTED THROUGH THE NIGHT, VSS, SPO2 >92% ON 3L O2 VIA NC, DRSG REMAINS INTACT, PATRICIO URINE IN FERNANDEZ, OSTOMY PRODUCING BLACK/GREEN LIQUID, ABD DISTENDED, DENIES NAUSEA, EPIDURAL INTACT, REPORT GIVEN TO ELIDA RN, AT BEDSIDE, CALL LIGHT IN REACH.
[2023-05-12 07:39] VITALS: BP 116/80
[2023-05-12 14:39] VITALS: BP 110/71
--- NOTE | 2023-05-12 17:11 | NUR ---
SHIFT SUMMARY POD 2 WASHOUT. ILEOSTOMY HAVING OUTPUT BROWN AND LIQUID. SOME GAS IN BAG. MINIMAL OUTPUT IN SUNITA DRAIN. PAIN CONTROLLED WITH EPIDURAL. PLAN IS TO REMOVE EPIDURAL THIS EVENING. PT AGREEABLE. PT HAS BEEN AMBULATING IN HALLWAYS. NO NAUSEA. TOLERATING DIET WELL. TARUN DRESSING CDI.
[2023-05-12 19:46] VITALS: BP 119/76
[2023-05-13 04:02] VITALS: BP 120/87
--- NOTE | 2023-05-13 05:15 | NUR ---
MD NOTIFIED PT WAS SITTING AT BEDSIDE C/O PAIN & AN "EXTREME COLD" SENSATION IN HIS STOMACH, ABD SEVERELY DISTENDED, PT ENC TO AMBULATE & DECREASE PO INTAKE, NO NEW ORDERS AT THIS TIME.
--- NOTE | 2023-05-13 07:19 | NUR ---
SHIFT SUMMARY PT REMAINS A&O X4, VSS, O2 VIA NC @ 3 L, SPO2 >90%, INCENTIVE SPIROMETER STRONGLY ENC, PT IS MAKING EN EFFORT YET RESP REMAIN SHALLOW, LUNG SOUNDS DECREASED IN BILATERAL BASES, PT EDUCATION PROVIDED. EPIDURAL WAS REMOVED BY @ APPROX 2014, PT TOLERATED W/NO PROBLEMS, EPIDURAL TIP INTACT. PT SAT IN BEDSIDE CHAIR X2, AMBULAT X3,LINEN WAS CHANGED, SPONGE BATH/ORAL CARE COMPLETED. 20 ML'S SS FLUID NOTED IN SUNITA, DRSG REMAINS INTACT, NO NEW DRAINAGE NOTED, 775 ML'S PATRICIO URINE IN FERNANDEZ. REPORT GIVEN TO ELIDA ROME, CALL LIGHT IN REACH, AT BEDSIDE.
[2023-05-13 09:11] LABS: BASOPHILS ABSOLUTE AUTO 0.02 K/mm3 (0.00-0.23); BASOPHILS PERCENT AUTO 0 % (0-2); EOSINOPHILS ABSOLUTE AUTO 0.12 K/mm3 (0.00-0.68); EOSINOPHILS PERCENT AUTO 1 % (0-6); Hematocrit 34.3 % (37.0-53.0); Hemoglobin 11.7 g/dL (13.5-17.5); IMMATURE GRAN ABSOLUTE AUTO 0.17 K/mm3 (0.00-0.10); IMMATURE GRAN PERCENT AUTO 1 % (0-1); LYMPHOCYTES ABSOLUTE AUTO 0.85 K/mm3 (0.84-5.20); LYMPHOCYTES PERCENT AUTO 6 % (21-46); MONOCYTES ABSOLUTE AUTO 0.97 K/mm3 (0.16-1.47); MONOCYTES PERCENT AUTO 7 % (4-13); Mean Corpuscular HGB Conc 34.1 g/dL (31.5-36.5); Mean Corpuscular Volume 91 fL (80-100); NEUTROPHILS ABSOLUTE AUTO 12.45 K/mm3 (1.96-9.15); NEUTROPHILS PERCENT AUTO 85 % (41-73); Platelet Count 312 K/mm3 (150-400); RDW Coefficient Variation 13.4 % (11.7-14.2); RDW Standard Deviation 44.9 fL (35.1-46.3); Red Blood Cell Count 3.77 M/mm3 (4.30-5.90); White Blood Cell Count 14.58 K/mm3 (4.00-11.30)
--- NOTE | 2023-05-13 09:28 | NUR ---
PT REPORTS PAIN ON PALPATION TO RLQ FROM MIDLINE TO SUNITA DRAIN SITE. HE REPORTS IT "FEELS COLD INSIDE". FEELS VERY WEAK AND TIRED THIS MORNING. USING INSPIROMETER FREQUENTLY. AMBULATING WELL. MINIMAL APPETITE.
[2023-05-13 09:31] LABS: Bun/Creatinine Ratio 34.9 (12.0-20.0); Calcium, Blood 8.3 mg/dL (8.5-10.1); Creatinine, Blood 0.63 mg/dL (0.60-1.20); Potassium, Blood 3.3 mmol/L (3.5-5.5)
[2023-05-13 11:28] VITALS: BP 132/85
[2023-05-13 14:31] VITALS: BP 122/83
--- NOTE | 2023-05-13 17:30 | NUR ---
SHIFT SUMMARY POD 3 WASHOUT AND COLOSTOMY MIDLINE DRESSING AND OSTOMY APPLIANCE CHANGED TODAY. DRESSING CDI. STOMA IS INVERTED AND CERA RING USED FOR CONVEXITY. PT ASKED SOME QUESTIONS REGARDING CHANGING. STOMA PASSING GAS AND LIQUID BROWN/GREEN. PT UP TO SHOWER TODAY. HE CONTINUES TO REPORT NOT FEELING GREAT, STATES HE IS VERY TIRED. TOLERATING SMALL AMOUNTS OF DIET. INTERMITTENT NAUSEA. PT WILL HAVE SPIKES OF PAIN, BUT TOLERABLE WITH PRN MEDICATIONS.
[2023-05-13 20:23] VITALS: BP 127/81
[2023-05-14 03:58] VITALS: BP 120/81
[2023-05-14 05:12] LABS: Hematocrit 41.5 % (37.0-53.0); Hemoglobin 14.3 g/dL (13.5-17.5); Mean Corpuscular HGB Conc 34.5 g/dL (31.5-36.5); Mean Corpuscular Volume 90 fL (80-100); Mean Platelet Volume 9.2 fL (9.1-12.4); Platelet Count 402 K/mm3 (150-400); RDW Coefficient Variation 13.5 % (11.7-14.2); RDW Standard Deviation 44.5 fL (35.1-46.3); Red Blood Cell Count 4.62 M/mm3 (4.30-5.90); White Blood Cell Count 19.02 K/mm3 (4.00-11.30)
[2023-05-14 05:37] LABS: Calcium, Blood 7.9 mg/dL (8.5-10.1); Creatinine, Blood 0.54 mg/dL (0.60-1.20)
--- NOTE | 2023-05-14 06:51 | NUR ---
SHIFT SUMMARY PT IS HERE FOR A SIGMOID COLECTOMY ON 05/07/23 AND A RETURN TO THE OR WITH AN EX LAP WHERE THE SURGEON TOOK DOWN THE ANASTOMOSIS, PERFORMED AN ABD WASHOUT, AND FORMED AN END COLOSTOMY ON 05/10/23. PT HAS BEEN RESTLESS ALL SHIFT, MOVING FROM THE BED TO THE CHAIR REPEATEDLY THROUGHOUT THE SHIFT. PT'S VITAL SIGNS HAVE BEEN STABLE ALL SHIFT. PT'S MIDLINE DRESSING HAS SOME OLDER DRAINAGE AT THE BOTTOM AND THE SUNITA DRAIN HAS HAD A LITTLE OUTPUT THIS SHIFT. WHEN THE PT STANDS UP TO TRANSFER, HE BELCHES QUITE A BIT. HIS COLOSTOMY BAG HAS BEEN EMPTIED AND REPLACED THIS SHIFT. ATIVAN GIVEN TO ASSIST WITH PT'S ANXIETY, BUT IT DID NOT HELP (0.5 MG DOSE). PT NAUSEOUS TWICE DURING THE SHIFT, WITH ANTI-EMETICS GIVEN WITH GOOD EFFECT. IV PAIN MEDS GIVEN MORE TOWARDS THE BEGINNING OF THE SHIFT VS THE END. NO ACUTE EVENTS OVERNIGHT, THOUGH PT WAS RESTLESS MOST OF THE SHIFT. BED IS IN LOWEST POSITION, BED IS IN LOWEST POSITION.
[2023-05-14 07:13] VITALS: BP 126/87
[2023-05-14 16:47] VITALS: BP 126/83
--- NOTE | 2023-05-14 17:21 | NUR ---
SUMMARY PT HAS BEEN RESTLESS T/O SHIFT, TRANSFERRING FROM BED TO CHAIR AND BACK. MEDICATED ONCE DURING SHIFT FOR NAUSEA AND T/O SHIFT FOR ABDOMINAL PAIN PER ORDERS. PT PALE. NONPITTING EDEMA NOTED TO BLE. VSS APPEAR STABLE. K RIDER INFUSING PER ORDERS AT THIS TIME. SPOUSE BEDSIDE. CALL LIGHT IN REACH.
[2023-05-14 19:56] VITALS: BP 125/87
[2023-05-15 03:31] VITALS: BP 121/82
[2023-05-15 04:16] LABS: Hematocrit 38.5 % (37.0-53.0); Hemoglobin 13.5 g/dL (13.5-17.5); Mean Corpuscular HGB 31.5 pg (26.0-34.0); Mean Corpuscular HGB Conc 35.1 g/dL (31.5-36.5); Mean Corpuscular Volume 90 fL (80-100); Mean Platelet Volume 9.3 fL (9.1-12.4); Platelet Count 440 K/mm3 (150-400); RDW Coefficient Variation 13.4 % (11.7-14.2); Red Blood Cell Count 4.29 M/mm3 (4.30-5.90)
[2023-05-15 04:37] LABS: Bun/Creatinine Ratio 19.1 (12.0-20.0); Creatinine, Blood 0.52 mg/dL (0.60-1.20)
[2023-05-15 04:53] LABS: BAND PERCENT MAN 3 % (0-8); BASOPHILS PERCENT MAN 0 % (0-2); EOSINOPHILS ABSOLUTE MAN 0.65 K/mm3 (0.00-0.68); EOSINOPHILS PERCENT MAN 3 % (0-6); LYMPHOCYTES % ATYPICAL MANUAL 2 % (0-0); LYMPHOCYTES ABSOLUTE MAN 0.65 K/mm3 (0.84-5.20); LYMPHOCYTES PERCENT MAN 1 % (21-46); METAMYELOCYTE ABSOLUTE MAN 0.21 K/mm3 (0.00-0.00); METAMYELOCYTE PERCENT MAN 1 % (0-0); MONOCYTES ABSOLUTE MAN 1.31 K/mm3 (0.16-1.47); MONOCYTES PERCENT MAN 6 % (4-13); MYELOCYTE ABSOLUTE MAN 0.21 K/mm3 (0.00-0.00); MYELOCYTE PERCENT MAN 1 % (0-0); NEUTROPHILS ABSOLUTE MAN 18.83 K/mm3 (1.96-9.15); SEG NEUTROPHILS PERCENT MAN 83 % (41-73); TOTAL CELLS COUNTED 100
--- NOTE | 2023-05-15 04:53 | NUR ---
SHIFT SUMMARY PT RESTLESS/ANXIOUS T/O NOC. HAS BEEN UP TO THE CHAIR AND BACK IN BED FREQUENTLY. DOES GET SOB WITH EXERTION R/T ABD PAIN. WEANED FROM 3L TO 1L 02 VIA NC. CONT BIOX IN PLACE AND SATS >90%. 2 PERCOCET FOR PAIN MANAGEMENT. ABD REMAINS DISTENDED, TYMPANIC BTS, COLOSTOMY WITH SMALL AMOUNT BROWN LIQUID STOOL, BUT NO FLATUS PRESENT IN BAG, SUNITA DRAIN WITH SMALL AMOUNT OF SS FLUID. MEDIPORE DRESSING REMAINS UNCHANGED WITH A SCANT AMOUNT OF DRIED DRAINAGE. NAUSEA X1 BUT NO EMESIS. PT WAS ABLE TO TOLERATE AN ENTIRE BOTTLE OF GATORADE. CONT TO ENCOURAGE PO INTAKE. USES URINAL INDEP. IV ABX PER ORDERS. NO TELE EVENTS--SR IN THE 90S. PT USES CALL LIGHT FREQUENTLY. AT BEDSIDE FOR SUPPORT.
[2023-05-15 07:39] VITALS: BP 118/84
--- NOTE | 2023-05-15 13:42 | NUR ---
CHANGED MEDIPORE DRESSING TO MIDLINE, SUNITA DRAIN SPONGE AND OSTOMY APPLIANCE DRESSING TO MIDLINE ABD SATURATED. CLEANSED AND PLACED NEW MEDIPORE DRESSING. CHANGED DRAIN SPONGE TO SUNITA DRAIN. CHANGED OSTOMY APPLIANCE, EDUCATING SPOUSE IN PROCESS. PT KEPT EYES CLOSED DURING CHANGE. SPOUSE WAS ATTENTIVE TO CHANGE, DENIED ANY QUESTIONS AT THE TIME.
[2023-05-15 14:54] VITALS: BP 128/84
--- NOTE | 2023-05-15 16:53 | NUR ---
DR HUSTON IN TO SEE PT.
--- NOTE | 2023-05-15 19:08 | NUR ---
summary NO ACUTE CHANGES T/O SHIFT. PT ATE A FEW BITES OF BREAKFAST AND LUNCH. FELT HUNGRY AT DINNER BUT FEELS ATE TOO QUICKLY AND BECAME NAUSEATED. PAINFUL WITH MOVEMENT. SAT UP IN CHAIR FOR AWHILE DURING DAY. OSTOMY APPLIANCE, MIDLINE DRESSING CHANGED. EDUCATED SPOUSE ON OSTOMY CHANGE. PT KEPT EYES CLOSED DURING CHANGE. PT NOW RESTING IN BED. CALL LIGHT IN REACH.
[2023-05-15 19:36] VITALS: BP 125/80
[2023-05-16 03:41] VITALS: BP 117/77
[2023-05-16 04:04] LABS: Hematocrit 37.2 % (37.0-53.0); Hemoglobin 12.5 g/dL (13.5-17.5); Mean Corpuscular HGB 30.5 pg (26.0-34.0); Mean Corpuscular HGB Conc 33.6 g/dL (31.5-36.5); Mean Corpuscular Volume 91 fL (80-100); Mean Platelet Volume 9.3 fL (9.1-12.4); Platelet Count 503 K/mm3 (150-400); RDW Coefficient Variation 13.7 % (11.7-14.2); RDW Standard Deviation 45.6 fL (35.1-46.3); White Blood Cell Count 21.47 K/mm3 (4.00-11.30)
[2023-05-16 04:19] LABS: Bun/Creatinine Ratio 19.4 (12.0-20.0); Calcium, Blood 7.9 mg/dL (8.5-10.1); Creatinine, Blood 0.57 mg/dL (0.60-1.20); Potassium, Blood 3.7 mmol/L (3.5-5.5)
--- NOTE | 2023-05-16 04:23 | NUR ---
SHIFT SUMMARY PT LESS RESTLESS TONIGHT COMPARED TO PREVIOUS NIGHT. REMAINS ON 1L 02 VIA NC. CONT BIOX IN PLACE AND SATS >90%. 2 PERCOCET FOR PAIN MANAGEMENT. ABD REMAINS DISTENDED, HYPOACTIVE BTS, COLOSTOMY WITH SMALL AMOUNT BROWN LIQUID STOOL WITH NO FLATUS PRESENT IN BAG, SUNITA DRAIN WITH SMALL AMOUNT OF SS FLUID. MEDIPORE DRESSING REMAINS CDI. NO NAUSEA THIS SHIFT AND PT WAS ABLE TO TOLERATE FLUIDS PO. USES URINAL INDEP. IV ABX PER ORDERS. NO TELE EVENTS--SR IN THE 90S. CALL LIGHT WITHIN REACH. AT BEDSIDE FOR SUPPORT.
[2023-05-16 05:19] LABS: BAND PERCENT MAN 2 % (0-8); BASOPHILS PERCENT MAN 0 % (0-2); EOSINOPHILS ABSOLUTE MAN 0.21 K/mm3 (0.00-0.68); EOSINOPHILS PERCENT MAN 1 % (0-6); LYMPHOCYTES % ATYPICAL MANUAL 1 % (0-0); LYMPHOCYTES ABSOLUTE MAN 1.28 K/mm3 (0.84-5.20); LYMPHOCYTES PERCENT MAN 5 % (21-46); METAMYELOCYTE ABSOLUTE MAN 0.42 K/mm3 (0.00-0.00); METAMYELOCYTE PERCENT MAN 2 % (0-0); MONOCYTES ABSOLUTE MAN 1.07 K/mm3 (0.16-1.47); MONOCYTES PERCENT MAN 5 % (4-13); NEUTROPHILS ABSOLUTE MAN 18.46 K/mm3 (1.96-9.15); SEG NEUTROPHILS PERCENT MAN 84 % (41-73); TOTAL CELLS COUNTED 100
[2023-05-16 07:20] VITALS: BP 125/87
[2023-05-16 13:51] VITALS: BP 128/80
--- NOTE | 2023-05-16 14:47 | NUR ---
DRESSING CHANGE: SS AND PURULENT DRAINAGE NOTED TO ML INCISION. SOME DRAINAGE COMING THROUGH THE DRESSING ONTO SKIN. DRESSING REMOVED AND SITE ASSESSED. THERE IS SMALL AMT OF REDNESS SOURROUNDING INCISION. REDNESS OUTLINED. ALL JUAN APPEAR INTACT. WOUND THEN CLEANSED WITH GAUZE AND WOUND GLASS WASHER AN DRY MEDIPORE APPLIED. DRESSING NOW CDI, DR. HUSTON MADE AWARE OF DRAINAGE AND DRESSING CHANGE.
--- NOTE | 2023-05-16 15:55 | NUR ---
SUMMARY: PT IS POD5 WASH OUT AND COLOSTOMY PLACEMENT. A/O , VSS TODAY. TELE WNL. OSTOMY SITE WNL WITH SMALL AMT BROWN LIQ STOOL, NO FLATUS NOTED. PT IS TOLERATING DIET WITHOUT DIFFICULTLY, EATING SMALL AMTS. PAIN APPEARS WELL MANAGED WITH 2 PERCOCETS PRN. PT CONTINUES TO TIRE EASILY, DECONDITIONED, BUT ABLE TO GET UP TO BATHROOM AND CHAIR SEVERAL TIMES TODAY WITH SBA. PLAN IS FOR REPEAT ABD CT TOMORROW.
[2023-05-16 19:14] VITALS: BP 120/67
[2023-05-17 03:41] VITALS: BP 115/76
--- NOTE | 2023-05-17 05:01 | NUR ---
SHIFT SUMMARY POD5 EX LAP, WASH OUT W/COLOSTOMY PT RESTED T/O NIGHT. PAIN MANAGED PER EMAR. UP TO THE BATHROOM MULTIPLE TIMES, VOIDING. COLOSTOMY PUTTING OUT LIQUID BROWN STOOL, WITH LIITLE GAS. ABD IS MODERATLY DISTENTED, TENDER. MIDLINE INCISION CLOSED WIHT JUAN AND HAS MEDIPORE DRESSING ON. DRESSING HAS SOME DRAINAGE ON IT. CHANGED DURING THE NIGHT. TOLERATING FULL LIQUID DIET, TAKING IN SMALL AMOUNTS. PT GETS A LITTLE WINDED WHEN GETTING UP BUT RECOVERS QUICKLY. SUNITA DRAIN HAS LITTLE OUTPUT, BULB COMPRESSED. NO OTHER CONCERNS AT THIS TIME, CALL LIGHT WITHIN REACH.
[2023-05-17 05:34] LABS: Hematocrit 36.3 % (37.0-53.0); Hemoglobin 12.5 g/dL (13.5-17.5); Mean Corpuscular HGB 30.6 pg (26.0-34.0); Mean Corpuscular HGB Conc 34.4 g/dL (31.5-36.5); Mean Corpuscular Volume 89 fL (80-100); Mean Platelet Volume 9.3 fL (9.1-12.4); Platelet Count 531 K/mm3 (150-400); RDW Coefficient Variation 13.6 % (11.7-14.2); RDW Standard Deviation 44.3 fL (35.1-46.3); Red Blood Cell Count 4.08 M/mm3 (4.30-5.90); White Blood Cell Count 18.74 K/mm3 (4.00-11.30)
[2023-05-17 06:25] LABS: Bun/Creatinine Ratio 18.3 (12.0-20.0); Calcium, Blood 7.9 mg/dL (8.5-10.1); Creatinine, Blood 0.49 mg/dL (0.60-1.20); Potassium, Blood 3.4 mmol/L (3.5-5.5)
[2023-05-17 06:26] LABS: BAND PERCENT MAN 3 % (0-8); BASOPHILS PERCENT MAN 0 % (0-2); EOSINOPHILS PERCENT MAN 0 % (0-6); LYMPHOCYTES % ATYPICAL MANUAL 1 % (0-0); LYMPHOCYTES ABSOLUTE MAN 1.31 K/mm3 (0.84-5.20); LYMPHOCYTES PERCENT MAN 6 % (21-46); METAMYELOCYTE ABSOLUTE MAN 0.74 K/mm3 (0.00-0.00); METAMYELOCYTE PERCENT MAN 4 % (0-0); MONOCYTES ABSOLUTE MAN 0.93 K/mm3 (0.16-1.47); MONOCYTES PERCENT MAN 5 % (4-13); MYELOCYTE ABSOLUTE MAN 0.37 K/mm3 (0.00-0.00); MYELOCYTE PERCENT MAN 2 % (0-0); NEUTROPHILS ABSOLUTE MAN 15.36 K/mm3 (1.96-9.15); SEG NEUTROPHILS PERCENT MAN 79 % (41-73); TOTAL CELLS COUNTED 100
[2023-05-17 08:15] VITALS: BP 141/94
[2023-05-17 15:02] VITALS: BP 122/80
--- NOTE | 2023-05-17 16:40 | NUR ---
SHIFT SUMMARY PT HAS HAD BLACK/BROWN LIQUID OUTPUT FROM STOMA. PURULENT DRAINAGE ON INCISION. MD AWARE. PT PAIN MANAGED PER EMAR. HE HAS BEEN AMBULATING TO RESTROOM WITH SBA. UP IN CHAIR DURING THE DAY. CONTINUES TO REPORT FEELING WEAK. IV ABX INFUSING PER EMAR. OSTOMY EDUCATION ONGOING.
[2023-05-17 19:27] VITALS: BP 121/82
--- NOTE | 2023-05-18 04:33 | NUR ---
SHIFT SUMMARY POD 8 EX LAP W/COLOSTOMY PT WAS UP FOR MOST OF THE NIGHT. PAIN WAS MANAGED PER EMAR. TOLERATING THE FULL LIQUID DIET. ENJOYS THE CHOCOLATE ENSURES. OSTOMY OUTPUTING LIQUID BROWN STOOL AND SOME GAS. DRESSING SATURATED THIS MORNING, CHANGED, C/D/I. PT VOIDING WELL. UP TO THE BATHROOM MULTIPLE TIMES T/O NIGHT. NO OTHER CONCERNS AT THIS TIME. CALL LIGHT WITHIN REACH.
[2023-05-18 05:25] VITALS: BP 118/67
[2023-05-18 05:29] LABS: Hemoglobin 12.6 g/dL (13.5-17.5); Mean Corpuscular HGB 30.6 pg (26.0-34.0); Mean Corpuscular HGB Conc 34.1 g/dL (31.5-36.5); Mean Corpuscular Volume 90 fL (80-100); Mean Platelet Volume 9.6 fL (9.1-12.4); Platelet Count 584 K/mm3 (150-400); RDW Coefficient Variation 13.5 % (11.7-14.2); Red Blood Cell Count 4.12 M/mm3 (4.30-5.90); White Blood Cell Count 19.54 K/mm3 (4.00-11.30)
[2023-05-18 05:38] LABS: Bun/Creatinine Ratio 12.6 (12.0-20.0); Calcium, Blood 7.9 mg/dL (8.5-10.1); Creatinine, Blood 0.55 mg/dL (0.60-1.20); Potassium, Blood 3.2 mmol/L (3.5-5.5)
[2023-05-18 07:53] VITALS: BP 120/80
--- NOTE | 2023-05-18 13:06 | NUR ---
ostomy appliance changed at this time, stoma is retracted with some adipose tissue visible medially. slight redness around stoma. dr. lieberman. covered using cera rings and oval appliance. pt tolerated procedure well. asking questions about ostomy. tolerated change well.
[2023-05-18 14:44] VITALS: BP 119/76
--- NOTE | 2023-05-18 17:06 | NUR ---
SHIFT SUMMARY PT HAS BEEN UP AND AMBULATING, WORKED WELL WITH THERAPY. PT HAS BEEN TOLERATING DIET WELL. OSTOMY APPLIANCE CHANGED TODAY. PT CONTINUES TO ASK QUESTIONS AND ENGAGES IN TEACHING. PAIN CONTROLLED PER EMAR. PLAN IS FOR PATIENT TO HAVE REPEAT CT SCAN ON SUNDAY. SUNITA DRAIN REMOVED TODAY. PT SHOWERED.
--- NOTE | 2023-05-18 17:59 | NUR ---
midline dresseing to abd changed at this time. pt tolerated well.
[2023-05-18 20:04] VITALS: BP 105/73
[2023-05-19 02:35] VITALS: BP 120/76
[2023-05-19 07:08] VITALS: BP 119/79
--- NOTE | 2023-05-19 08:57 | NUR ---
PT AMBULATORY,VOIDING,STOOL VIA OSTOMY,NO ACUTE CHANGES IN STOMA.NO REPORTED NAUSEA.
--- NOTE | 2023-05-19 10:38 | NUR ---
DR MATTHEWS IN TO SEE PT.
--- NOTE | 2023-05-19 10:39 | NUR ---
DR MATTHEWS IN TO SEE PT.
[2023-05-19 13:01] LABS: Hematocrit 38.9 % (37.0-53.0); Hemoglobin 13.2 g/dL (13.5-17.5); Mean Corpuscular HGB 30.6 pg (26.0-34.0); Mean Corpuscular HGB Conc 33.9 g/dL (31.5-36.5); Mean Corpuscular Volume 90 fL (80-100); Mean Platelet Volume 9.1 fL (9.1-12.4); Platelet Count 595 K/mm3 (150-400); RDW Coefficient Variation 13.7 % (11.7-14.2); RDW Standard Deviation 45.4 fL (35.1-46.3); Red Blood Cell Count 4.31 M/mm3 (4.30-5.90); White Blood Cell Count 22.46 K/mm3 (4.00-11.30)
[2023-05-19 13:22] LABS: Bun/Creatinine Ratio 10.5 (12.0-20.0); Calcium, Blood 8.2 mg/dL (8.5-10.1); Creatinine, Blood 0.57 mg/dL (0.60-1.20); Potassium, Blood 4.1 mmol/L (3.5-5.5)
[2023-05-19 15:46] VITALS: BP 117/75
--- NOTE | 2023-05-19 17:13 | NUR ---
SUMMARY PT OSTOMY PUTTING OUT LIQUID TO UNFORMED SOFT BROWN STOOL. ENCOURAGING/TEACHING PT OSTOMY CARE. DRESSING CHANGED TO MIDLINE INCISION THIS EVENING. REMOVED THREE JUAN FROM INFERIOR PORTION OF INCISION PER DR GRIFFIN'S VERBAL ORDER. PT TOLERATED WELL. MEDICATED PT FOR PAIN PER ORDERS. CALL LIGHT IN REACH.
[2023-05-19 19:26] VITALS: BP 118/71
[2023-05-20 02:49] VITALS: BP 112/76
[2023-05-20 05:32] LABS: BASOPHILS ABSOLUTE AUTO 0.07 K/mm3 (0.00-0.23); BASOPHILS PERCENT AUTO 0 % (0-2); EOSINOPHILS PERCENT AUTO 1 % (0-6); Hematocrit 35.1 % (37.0-53.0); Hemoglobin 11.9 g/dL (13.5-17.5); IMMATURE GRAN ABSOLUTE AUTO 0.55 K/mm3 (0.00-0.10); IMMATURE GRAN PERCENT AUTO 3 % (0-1); LYMPHOCYTES ABSOLUTE AUTO 1.26 K/mm3 (0.84-5.20); LYMPHOCYTES PERCENT AUTO 7 % (21-46); MONOCYTES ABSOLUTE AUTO 1.02 K/mm3 (0.16-1.47); MONOCYTES PERCENT AUTO 6 % (4-13); Mean Corpuscular HGB Conc 33.9 g/dL (31.5-36.5); Mean Corpuscular Volume 91 fL (80-100); Mean Platelet Volume 9.7 fL (9.1-12.4); NEUTROPHILS ABSOLUTE AUTO 15.52 K/mm3 (1.96-9.15); NEUTROPHILS PERCENT AUTO 84 % (41-73); Platelet Count 560 K/mm3 (150-400); RDW Coefficient Variation 13.8 % (11.7-14.2); RDW Standard Deviation 46.4 fL (35.1-46.3); Red Blood Cell Count 3.84 M/mm3 (4.30-5.90); White Blood Cell Count 18.52 K/mm3 (4.00-11.30)
[2023-05-20 05:54] LABS: Bun/Creatinine Ratio 14.4 (12.0-20.0); Calcium, Blood 8.2 mg/dL (8.5-10.1); Creatinine, Blood 0.56 mg/dL (0.60-1.20); Potassium, Blood 3.8 mmol/L (3.5-5.5)
[2023-05-20 07:14] VITALS: BP 117/69
--- NOTE | 2023-05-20 08:23 | NUR ---
SUMMARY PT UP IN HALLS WITH THIS SHIFT.VOIDING,BMS PER OSTOMY. PAIN CONTROLLED WITHOUT USE OF FENTANYL TONIGHT.
[2023-05-20 15:22] VITALS: BP 114/76
[2023-05-20 19:25] VITALS: BP 111/76
--- NOTE | 2023-05-20 19:37 | NUR ---
SHIFT SUMMARY PT A&OX4, VSS/RA, [place], VOIDING, AMB SBA TO BRP, EMPTYING OSTOMY, PAIN MANAGED, BEDSIDE. REPORT TO CHUYITA ROME.
--- NOTE | 2023-05-21 04:21 | NUR ---
PER SOLE SEWER HAND PLAN FOR PT TO GO BACK TO [facility] 0500. PT PREMEDICATED W/BENADRYL PER EMAR.
[2023-05-21 04:44] VITALS: BP 105/80
[2023-05-21 05:15] LABS: BASOPHILS ABSOLUTE AUTO 0.07 K/mm3 (0.00-0.23); BASOPHILS PERCENT AUTO 0 % (0-2); EOSINOPHILS ABSOLUTE AUTO 0.16 K/mm3 (0.00-0.68); EOSINOPHILS PERCENT AUTO 1 % (0-6); Hematocrit 35.9 % (37.0-53.0); Hemoglobin 12.1 g/dL (13.5-17.5); IMMATURE GRAN ABSOLUTE AUTO 0.36 K/mm3 (0.00-0.10); IMMATURE GRAN PERCENT AUTO 2 % (0-1); LYMPHOCYTES ABSOLUTE AUTO 1.28 K/mm3 (0.84-5.20); LYMPHOCYTES PERCENT AUTO 8 % (21-46); MONOCYTES ABSOLUTE AUTO 0.99 K/mm3 (0.16-1.47); MONOCYTES PERCENT AUTO 6 % (4-13); Mean Corpuscular HGB 30.8 pg (26.0-34.0); Mean Corpuscular HGB Conc 33.7 g/dL (31.5-36.5); Mean Corpuscular Volume 91 fL (80-100); Mean Platelet Volume 9.3 fL (9.1-12.4); NEUTROPHILS ABSOLUTE AUTO 13.16 K/mm3 (1.96-9.15); NEUTROPHILS PERCENT AUTO 82 % (41-73); Platelet Count 617 K/mm3 (150-400); RDW Coefficient Variation 13.7 % (11.7-14.2); RDW Standard Deviation 46.4 fL (35.1-46.3); Red Blood Cell Count 3.93 M/mm3 (4.30-5.90); White Blood Cell Count 16.02 K/mm3 (4.00-11.30)
[2023-05-21 05:46] LABS: Bun/Creatinine Ratio 16.2 (12.0-20.0); Calcium, Blood 8.7 mg/dL (8.5-10.1); Creatinine, Blood 0.49 mg/dL (0.60-1.20); Potassium, Blood 4.2 mmol/L (3.5-5.5)
--- NOTE | 2023-05-21 06:37 | NUR ---
PT VSS T/O NIGHT. SATS >90% ON RA. PAIN MGD W/2 PERCOCET W/REP RELIEF. DRESSING CDI. OSTOMY PUTTING OUT THICK BROWN STOOL. PT AND EMPTYING. PT SANTI PO, DENIED N/V, IS VOIDING URINE W/O DIFFICULTY. PT UP IN ROOM W/SBA, REMAINS WEAK AND PAINFUL W/MVMT. CT COMPLETED THIS AM, PT PREMEDICATED W/BENADRYL PER ORDERS, SANTI WELL.
[2023-05-21 07:34] VITALS: BP 113/78
[2023-05-21 15:48] VITALS: BP 115/75
--- NOTE | 2023-05-21 17:39 | NUR ---
SHIFT SUMMARY PT INDEPENDENT IN ROOM, AMBULATED IN HALLWAY SEVERAL TIMES WITH . PAIN MEDICATED PER EMR. LUNGS CTA, BOWEL SOUNDS NORMOACTIVE, VSS. OSTOMY DRESSING CHANGED BY RN THIS SHIFT, PT AND FAMILY EDUCATION PROVIDED ON PROCEDURE. INCISION IS WELL APPROXIMATED WITH MINIMAL DRAINAGE. MIDLINE DRESSING C/D/I. PT IS RESTING COMFORTABLY WITH AT BEDSIDE, BREATHING EVEN AND UNLABORED.
[2023-05-21 19:37] VITALS: BP 118/82
[2023-05-22 02:42] VITALS: BP 103/79
[2023-05-22 05:17] LABS: BASOPHILS ABSOLUTE AUTO 0.04 K/mm3 (0.00-0.23); BASOPHILS PERCENT AUTO 0 % (0-2); EOSINOPHILS ABSOLUTE AUTO 0.21 K/mm3 (0.00-0.68); EOSINOPHILS PERCENT AUTO 1 % (0-6); Hematocrit 36.6 % (37.0-53.0); Hemoglobin 12.2 g/dL (13.5-17.5); IMMATURE GRAN ABSOLUTE AUTO 0.26 K/mm3 (0.00-0.10); IMMATURE GRAN PERCENT AUTO 2 % (0-1); LYMPHOCYTES ABSOLUTE AUTO 1.61 K/mm3 (0.84-5.20); LYMPHOCYTES PERCENT AUTO 11 % (21-46); MONOCYTES PERCENT AUTO 8 % (4-13); Mean Corpuscular HGB 30.2 pg (26.0-34.0); Mean Corpuscular HGB Conc 33.3 g/dL (31.5-36.5); Mean Corpuscular Volume 91 fL (80-100); NEUTROPHILS ABSOLUTE AUTO 11.78 K/mm3 (1.96-9.15); NEUTROPHILS PERCENT AUTO 78 % (41-73); Platelet Count 659 K/mm3 (150-400); RDW Coefficient Variation 13.5 % (11.7-14.2); RDW Standard Deviation 45.3 fL (35.1-46.3); Red Blood Cell Count 4.04 M/mm3 (4.30-5.90)
--- NOTE | 2023-05-22 05:18 | NUR ---
PT VSS T/O NIGHT. SATS >90% ON RA, PT ENC TO USE I/S WHEN AWAKE. OSTOMY W/GAS AND BROWN STOOL. PT DENIED N/V, ABD APPEARS SOMEWHAT LESS DISTENDED, IS SOFT TO PALP. DRESSING CDI. PT UP OOB W/ ASSIST. PAIN MGD W/2 PERCOCET W/REP RELIEF. ABX CONT PER EMAR.
[2023-05-22 05:54] LABS: Bun/Creatinine Ratio 16.4 (12.0-20.0); Calcium, Blood 8.8 mg/dL (8.5-10.1); Creatinine, Blood 0.61 mg/dL (0.60-1.20); Potassium, Blood 4.4 mmol/L (3.5-5.5)
[2023-05-22 07:44] VITALS: BP 112/76
[2023-05-22 15:52] VITALS: BP 112/77
--- NOTE | 2023-05-22 17:11 | NUR ---
SHIFT SUMMARY PT REPORTED MINIMAL PAINT THIS SHIFT, MEDICATED PER EMR. VSS, PT DENIES SOB THIS SHIFT. IV IN LEFT FA PATENT. PT AMBULATED IN HALLWAY SEVERAL TIMES T/O SHIFT. OSTOMY APPLIANCE INTACT. PT IS RESTING COMFORTABLY, BREATHING EVEN AND UNLABORED, AT BEDSIDE.
--- NOTE | 2023-05-22 19:12 | NUR ---
PT AMB IN HALLS W/ AT SIDE.
--- NOTE | 2023-05-22 19:28 | NUR ---
SHIFT SUMMARY S/P COLLECTOMY WITH REVISION/WASHOUT/OSTOMY FORMATION, A/OX4, VSS, TOLERATING PO, AMBULATING IN THE HALLS, PAIN MANAGED PER EMAR. PT HAD DISCHARGE ORDER PLACED BUT IS UNABLE TO GET INTO [facility] FOR WOUND CARE UNTIL NEXT WEEK PER THEIR AVAILABILITY. TENTATIVE PLAN IS TO DISCHARGE SUNDAY AFTER ADDITIONAL TEACHING BY STORY ANALYST AND THEN F/U WITH WOUND CENTER.
[2023-05-22 20:01] VITALS: BP 116/83
[2023-05-23 04:55] LABS: BASOPHILS ABSOLUTE AUTO 0.08 K/mm3 (0.00-0.23); BASOPHILS PERCENT AUTO 1 % (0-2); EOSINOPHILS ABSOLUTE AUTO 0.24 K/mm3 (0.00-0.68); EOSINOPHILS PERCENT AUTO 2 % (0-6); Hematocrit 37.1 % (37.0-53.0); Hemoglobin 12.4 g/dL (13.5-17.5); IMMATURE GRAN ABSOLUTE AUTO 0.21 K/mm3 (0.00-0.10); IMMATURE GRAN PERCENT AUTO 2 % (0-1); LYMPHOCYTES ABSOLUTE AUTO 1.82 K/mm3 (0.84-5.20); LYMPHOCYTES PERCENT AUTO 15 % (21-46); MONOCYTES ABSOLUTE AUTO 1.04 K/mm3 (0.16-1.47); MONOCYTES PERCENT AUTO 8 % (4-13); Mean Corpuscular HGB 30.5 pg (26.0-34.0); Mean Corpuscular HGB Conc 33.4 g/dL (31.5-36.5); Mean Corpuscular Volume 91 fL (80-100); Mean Platelet Volume 9.1 fL (9.1-12.4); NEUTROPHILS ABSOLUTE AUTO 9.13 K/mm3 (1.96-9.15); NEUTROPHILS PERCENT AUTO 73 % (41-73); Platelet Count 713 K/mm3 (150-400); RDW Coefficient Variation 13.2 % (11.7-14.2); Red Blood Cell Count 4.06 M/mm3 (4.30-5.90); White Blood Cell Count 12.52 K/mm3 (4.00-11.30)
[2023-05-23 05:05] VITALS: BP 111/73
[2023-05-23 05:17] LABS: Albumin, Blood 2.5 g/dL (3.4-5.0); Albumin/Globulin Ratio 0.6 (0.8-1.8); Bilirubin, Total 0.4 mg/dL (0.1-1.0); Bun/Creatinine Ratio 20.9 (12.0-20.0); Calcium, Blood 8.8 mg/dL (8.5-10.1); Creatinine, Blood 0.57 mg/dL (0.60-1.20); Globulin, Blood 4.5 g/dL (2.2-4.0); Potassium, Blood 4.3 mmol/L (3.5-5.5)
--- NOTE | 2023-05-23 06:31 | NUR ---
PT VSS T/O NIGHT. DRESSING CDI. OSTOMY APPLIANCE INTACT PUTTING OUT SOFT BROWN STOOL AND GAS, PT AND MANAGING W/MIN ASSISTANCE. PT REP FEELING LESS PAINFUL, PAIN 2-4/10, MGD W/2 PERCOCET W/REP RELIEF. PT AMB INDEP IN HALLS, SANTI WELL. PLAN TO CONT TO MOBILIZE AND AWAIT DC PLANNING.
[2023-05-23 07:26] VITALS: BP 97/68
[2023-05-23 11:25] VITALS: BP 100/40
[2023-05-23 14:48] VITALS: BP 120/76
--- NOTE | 2023-05-23 17:51 | NUR ---
SUMMARY PT TEARFUL THIS EVENING DUE TO 8-9/10 PAIN UPON WAKING. MEDICATED PER ORDERS. COACHED PT IN RELAXATION BREATHING. BT PRESENT. PT AMBULATED IN [place] TWICE TODAY, GETTING UP INDEPENDENTLY AND EMPTYING OSTOMY INDEPENDENTLY. SPOUSE HAS BEEN BEDSIDE T/O SHIFT. CALL LIGHT IN REACH.
[2023-05-23 19:23] VITALS: BP 104/68
[2023-05-24 02:40] VITALS: BP 106/74
[2023-05-24 04:55] LABS: BASOPHILS ABSOLUTE AUTO 0.08 K/mm3 (0.00-0.23); BASOPHILS PERCENT AUTO 1 % (0-2); EOSINOPHILS ABSOLUTE AUTO 0.18 K/mm3 (0.00-0.68); EOSINOPHILS PERCENT AUTO 2 % (0-6); Hematocrit 36.4 % (37.0-53.0); Hemoglobin 12.2 g/dL (13.5-17.5); IMMATURE GRAN ABSOLUTE AUTO 0.16 K/mm3 (0.00-0.10); IMMATURE GRAN PERCENT AUTO 2 % (0-1); LYMPHOCYTES ABSOLUTE AUTO 1.62 K/mm3 (0.84-5.20); LYMPHOCYTES PERCENT AUTO 16 % (21-46); MONOCYTES ABSOLUTE AUTO 0.93 K/mm3 (0.16-1.47); MONOCYTES PERCENT AUTO 9 % (4-13); Mean Corpuscular HGB 30.4 pg (26.0-34.0); Mean Corpuscular HGB Conc 33.5 g/dL (31.5-36.5); Mean Corpuscular Volume 91 fL (80-100); Mean Platelet Volume 8.8 fL (9.1-12.4); NEUTROPHILS ABSOLUTE AUTO 7.28 K/mm3 (1.96-9.15); NEUTROPHILS PERCENT AUTO 71 % (41-73); Platelet Count 732 K/mm3 (150-400); RDW Standard Deviation 43.3 fL (35.1-46.3); Red Blood Cell Count 4.01 M/mm3 (4.30-5.90); White Blood Cell Count 10.25 K/mm3 (4.00-11.30)
[2023-05-24 05:22] LABS: Albumin, Blood 2.5 g/dL (3.4-5.0); Albumin/Globulin Ratio 0.5 (0.8-1.8); Bilirubin, Total 0.4 mg/dL (0.1-1.0); Bun/Creatinine Ratio 19.6 (12.0-20.0); Calcium, Blood 8.7 mg/dL (8.5-10.1); Creatinine, Blood 0.61 mg/dL (0.60-1.20); Globulin, Blood 4.9 g/dL (2.2-4.0); Potassium, Blood 4.1 mmol/L (3.5-5.5); Total Protein, Blood 7.4 g/dL (6.4-8.2)
--- NOTE | 2023-05-24 06:35 | NUR ---
SHIFT SUMMARY POD 17 SIGMOID CHOLECTOMY & POD 14 EX LAP c ANASTOMOSIS & END COLOSTOMY. NO ACUTE CHANGES THIS SHIFT. VS WNL FOR PT. MIDLINE DRESSING CHANGED THIS SHIFT, SEROSANGUINEOUS DRAINAGE ON ABD PAD. AMBULATES INDEPENDENTLY. PT REPORTS PAIN TOLERABLE, MEDICATED PER EMAR. S/O AT BEDSIDE. PT & S/0 MANAGING COLOSTOMY INDEPENDENTLY. ANTICIPATED DISCHARGE TODAY AFTER CONSULT c ELIDA RN. CALL LIGHT WITHIN REACH, BED IN LOWEST POSITION, WILL REPORT TO DAY RN.
[2023-05-24 07:08] VITALS: BP 107/72
[2023-05-24] MEDS ORDERED: DOCU100 PO (11:58)
[2023-05-24] MEDS ORDERED: Percocet 5-3251 EACH PO (11:59)
[2023-05-24] MEDS ORDERED: CIPR750 PO (12:00)
[2023-05-24] MEDS ORDERED: METR500 PO (12:00)
--- NOTE | 2023-05-24 14:44 | NUR ---
DISCHARGE SUMMARY GATHERED PATIENT'S BELONGINGS, WENT OVER VERBAL AND WRITTEN DISCHARGE INSTRUCTIONS, AND REMOVED POWERGLIDE W/O COMPLICATIONS. PATIENT AGREEABLE TO DISCHARGE, INSTRUCTIONS GIVEN TO PATIENT AND HIS SPOUSE. SUPPLIES GATHERED FOR OSTOMY CHANGES AND DRESSINGS CHANGES AND SENT WITH PATIENT. PATIENT DRESSED AND IN WHEELCHAIR. WHEELED OUT BY HOME IMPROVEMENT ADVISOR.
== END 2023-05-24 14:45 | disposition home or self-care (01) | DRG 981 ==
LOC: SURS 07:05 → PRE IP 08:30 → SURS 13:18 → ICUE 05-10 17:25 → SURS 05-11 12:59
PROVIDERS: Anesthesiology; Hospitalist; Internal Medicine; Student in an Organized Health Care Education/Training Program; ADMIT Surgery
PROC: 0DBN0ZZ Excision of Sigmoid Colon, Open Approach (ICD-10-PCS; principal; 2023-05-07 08:30)
PROC: 0DBM0ZZ Excision of Descending Colon, Open Approach (ICD-10-PCS; 2023-05-10)
PROC: 0D1M0Z4 Bypass Descending Colon to Cutaneous, Open Approach (ICD-10-PCS; 2023-05-10)
DX: N32.1 Vesicointestinal fistula (principal); A41.9 Sepsis, unspecified organism; R65.20 Severe sepsis without septic shock; K57.20 Diverticulitis of large intestine with perforation and abscess without bleeding; E87.20 Acidosis, unspecified; L02.211 Cutaneous abscess of abdominal wall; J98.11 Atelectasis; K91.89 Other postprocedural complications and disorders of digestive system; K56.7 Ileus, unspecified; E87.6 Hypokalemia; F41.9 Anxiety disorder, unspecified; K66.8 Other specified disorders of peritoneum; K21.9 Gastro-esophageal reflux disease without esophagitis; B96.89 Other specified bacterial agents as the cause of diseases classified elsewhere; F32.A Depression, unspecified; Z91.041 Radiographic dye allergy status; E66.9 Obesity, unspecified; Z90.49 Acquired absence of other specified parts of digestive tract; Z90.89 Acquired absence of other organs; Z98.890 Other specified postprocedural states; Z79.2 Long term (current) use of antibiotics; Z79.899 Other long term (current) drug therapy; Z87.891 Personal history of nicotine dependence; Y83.2 Surgical operation with anastomosis, bypass or graft as the cause of abnormal reaction of the patient, or of later complication, without mention of misadventure at the time of the procedure; Z93.3 Colostomy status; Z68.37 Body mass index [BMI] 37.0-37.9, adult
CPT/HCPCS: 36415; 71045; 71046; 74176; 74177; 80048; 80053; 81001; 82803; 83605; 83735; 84145; 85025; 85027; 87040; 88307; 93005; 93010; 94760; 94762; 97116; 97162; 97530; A9270; C1751; J0295; J0692; J0696; J1100; J1200; J1650; J1720; J1885; J2001; J2060; J2250; J2371; J2405; J2704; J2765; J3010; J3370; J3480; J7040; J7050; J7120; Q9967; V2790

== ENCOUNTER 2023-05-28 00:34 | Day surgery (SDC) | payer OTHER ==
[~2023-05-28 00:34] MED LIST changes: +CIPR750 PO; +DOCU100 PO; +METR500 PO; +Percocet 5-3251 EACH PO
== END 2023-05-28 22:47 | disposition home or self-care (01) ==
LOC: WOUND 00:34
DX: T81.31XD Disruption of external operation (surgical) wound, not elsewhere classified, subsequent encounter (principal); L02.211 Cutaneous abscess of abdominal wall; Z91.041 Radiographic dye allergy status; Y83.8 Other surgical procedures as the cause of abnormal reaction of the patient, or of later complication, without mention of misadventure at the time of the procedure
CPT/HCPCS: A9270; G0463

== ENCOUNTER 2023-06-06 05:19 | Day surgery (SDC) | payer OTHER | END 2023-06-06 22:48 | disposition home or self-care (01) | LOC: WOUND 05:19 | DX: L02.211 Cutaneous abscess of abdominal wall (principal); S31.103A Unspecified open wound of abdominal wall, right lower quadrant without penetration into peritoneal cavity, initial encounter; S31.109A Unspecified open wound of abdominal wall, unspecified quadrant without penetration into peritoneal cavity, initial encounter; X58.XXXA Exposure to other specified factors, initial encounter | CPT/HCPCS: G0463 ==

== ENCOUNTER 2023-06-18 04:36 | Day surgery (SDC) | payer OTHER | END 2023-06-18 22:36 | disposition home or self-care (01) | LOC: WOUND 04:36 | DX: T81.31XD Disruption of external operation (surgical) wound, not elsewhere classified, subsequent encounter (principal); L02.211 Cutaneous abscess of abdominal wall; Y83.8 Other surgical procedures as the cause of abnormal reaction of the patient, or of later complication, without mention of misadventure at the time of the procedure ==

== ENCOUNTER 2023-06-25 03:32 | Day surgery (SDC) | payer OTHER | END 2023-06-25 22:55 | disposition home or self-care (01) | LOC: WOUND 03:32 | DX: S31.109A Unspecified open wound of abdominal wall, unspecified quadrant without penetration into peritoneal cavity, initial encounter (principal); X58.XXXA Exposure to other specified factors, initial encounter; L02.211 Cutaneous abscess of abdominal wall | CPT/HCPCS: G0463 ==

== ENCOUNTER 2023-07-02 03:31 | Day surgery (SDC) | payer OTHER | END 2023-07-02 22:45 | disposition home or self-care (01) | LOC: WOUND 03:31 | DX: T81.31XD Disruption of external operation (surgical) wound, not elsewhere classified, subsequent encounter (principal); L02.211 Cutaneous abscess of abdominal wall; Y83.8 Other surgical procedures as the cause of abnormal reaction of the patient, or of later complication, without mention of misadventure at the time of the procedure | CPT/HCPCS: A9270 ==

== ENCOUNTER 2023-07-09 02:59 | Day surgery (SDC) | payer OTHER | END 2023-07-09 23:30 | disposition home or self-care (01) | LOC: WOUND 02:59 | DX: L02.211 Cutaneous abscess of abdominal wall (principal) | CPT/HCPCS: G0463 ==

== ENCOUNTER → 2025-01-19 | Outpatient (CLI) | payer OTHER ==
[2025-01-19 09:44] LABS: BASOPHILS ABSOLUTE AUTO 0.03 K/mm3 (0.00-0.23); BASOPHILS PERCENT AUTO 1 % (0-2); EOSINOPHILS ABSOLUTE AUTO 0.14 K/mm3 (0.00-0.68); EOSINOPHILS PERCENT AUTO 2 % (0-6); Hematocrit 42.6 % (37.0-53.0); Hemoglobin 14.9 g/dL (13.5-17.5); IMMATURE GRAN ABSOLUTE AUTO 0.01 K/mm3 (0.00-0.10); IMMATURE GRAN PERCENT AUTO 0 % (0-1); LYMPHOCYTES ABSOLUTE AUTO 1.50 K/mm3 (0.84-5.20); LYMPHOCYTES PERCENT AUTO 25 % (21-46); MONOCYTES ABSOLUTE AUTO 0.34 K/mm3 (0.16-1.47); MONOCYTES PERCENT AUTO 6 % (4-13); Mean Corpuscular HGB Conc 35.0 g/dL (31.5-36.5); Mean Corpuscular Volume 91 fL (80-100); NEUTROPHILS ABSOLUTE AUTO 4.03 K/mm3 (1.96-9.15); NEUTROPHILS PERCENT AUTO 67 % (41-73); NRBC ABSOLUTE 0.00 K/mm3 (0.00-0.02); NRBC Auto 0.0 /100 WBC (0.0-0.2); Platelet Count 291 K/mm3 (150-400); RDW Coefficient Variation 12.6 % (11.7-14.2); RDW Standard Deviation 41.6 fL (35.1-46.3)
[2025-01-19 10:32] LABS: Alanine Aminotransfer (ALT/SGP 39.0 U/L (12-78); Albumin, Blood 4.2 g/dL (3.4-5.0); Albumin/Globulin Ratio 1.2 (0.8-1.8); Anion Gap 7.0 mmol/L (3-11); Aspartate Aminotrans (AST/SGOT 26.0 U/L (12-37); Bilirubin, Total 0.4 mg/dL (0.1-1.0); Blood Urea Nitrogen 19.0 mg/dL (8-24); CO2, Blood 28.0 mmol/L (21-32); Calcium, Blood 8.8 mg/dL (8.5-10.1); Chloride, Blood 108.0 mmol/L (98-108); Creatinine, Blood 0.83 mg/dL (0.60-1.20); Globulin, Blood 3.4 g/dL (2.2-4.0); Glucose, Blood 89.0 mg/dL (70-99); Potassium, Blood 3.9 mmol/L (3.5-5.5); Sodium, Blood 139.0 mmol/L (136-145); Total Protein, Blood 7.6 g/dL (6.4-8.2)
== END | disposition home or self-care (01) ==
LOC: LAB SHORT 09:40 → LAB 09:40
PROVIDERS: Physician Assistant
DX: R10.84 Generalized abdominal pain (principal)
CPT/HCPCS: 80053; 83690; 85025